=== PATIENT | female | born 1975 | race African-American/Black ===

== ENCOUNTER 2022-09-08 11:49 | Emergency (ER) | payer MEDICAID ==
[~2022-09-08] VITALS: Ht 170.2 cm; Wt 112.2 kg
[2022-09-08 12:49] LABS: BASOPHILS % 0.7 % (0.0-2.0); EOSINOPHILS % 4.2 % (0.0-5.0); HEMATOCRIT. 38.7 % (36.0-48.0); HEMOGLOBIN. 13.2 g/dL (12.0-16.0); LYMPHOCYTES % 32.8 % (20.0-50.0); MEAN CORPUSCULAR HEMOGLOBIN 29.2 pg (28.0-32.0); MEAN CORPUSCULAR VOLUME 85.5 fL (81.0-99.0); MEAN PLATELET VOLUME 9.4 fl (7.4-10.4); MONOCYTES % 7.4 % (2.0-8.0); NEUTROPHILS % 54.9 % (40.0-76.0); PLATELET 308 x1000/uL (130-400); RED BLOOD CELL COUNT 4.53 mill/uL (4.2-5.4); RED CELL DISTRIBUTION WIDTH 14.2 % (11.6-14.6)
[2022-09-08 12:51] LABS: CLARITY URINE CLEAR (CLEAR); COLOR URINE YELLOW (YELLOW); KETONES URINE NEGATIVE (NEGATIVE); LEUKOCYTE ESTERASE URINE NEGATIVE (NEGATIVE); NITRITE URINE NEGATIVE (NEGATIVE); OCCULT BLOOD URINE NEGATIVE (NEGATIVE); PROTEIN URINE 1+ (NEGATIVE); SPECIFIC GRAVITY URINE 1.012 (1.005-1.030); UROBILINOGEN URINE 0.2 E.U./dL (0.2-1.0)
[2022-09-08 12:53] LABS: CHLORIDE 103 mEq/L (98-107)
[2022-09-08] MEDS ORDERED: FAMOTIDINE 20MG TABLET PO ONE (13:30)
[2022-09-08] MEDS ORDERED: MAGNESIUM/ALUMINUM HYDROXIDE/SIMETHICONE 30ML UDC PO ONE (13:30)
[2022-09-08] MEDS ORDERED: ONDANSETRON 4MG ODT PO ONE (13:30)
[2022-09-08] MEDS ORDERED: ONDANSETRON 4MG ODT PO NR (15:30)
[2022-09-08] MEDS ORDERED: FAMOTIDINE 20MG TABLET PO NR (15:30)
[2022-09-08] MEDS ORDERED: MAGNESIUM/ALUMINUM HYDROXIDE/SIMETHICONE 30ML UDC PO NR (15:30)
[2022-09-08] MEDS ORDERED: POLY17PO3 MT (16:37)
[2022-09-08 17:30] VITALS: BP 153/100
== END 2022-09-08 17:42 | disposition home or self-care (01) ==
LOC: ER 11:49
DX: R10.9 Unspecified abdominal pain (principal)
CPT/HCPCS: 36415; 74176; 80053; 81003; 81025; 83605; 83690; 85025; 99284; Q0162